=== PATIENT | male | born 1965 | race Caucasian/White ===

== ENCOUNTER 2018-03-13 20:45 | Emergency (ER) | payer SELFPAY ==
[~2018-03-13] VITALS: Ht 177.8 cm; Wt 122.7 kg
[2018-03-13] MEDS ORDERED: LORTAB 1010 MG PO (21:24)
[2018-03-13] MEDS ORDERED: DOXYCYC MONO100 M2 PO (21:24)
[2018-03-13 21:49] VITALS: BP 158/84
== END 2018-03-13 21:45 | disposition home or self-care (01) | DRG 607 ==
LOC: ED 20:45
DX: L73.2 Hidradenitis suppurativa (principal); F17.210 Nicotine dependence, cigarettes, uncomplicated